=== PATIENT | male | born 1985 | race Caucasian/White ===

== ENCOUNTER 2017-03-23 20:00 | Emergency (ER) | payer OTHER ==
[2017-03-23 20:08] VITALS: BP 133/89; PULSE 100; TEMP 98.8; BMI 31.8
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
[2017-03-23] MEDS ORDERED: SODIUM CHLORIDE 1,000 ML IV ONE (21:02)
[2017-03-23 21:43] LABS: MEAN PLT VOLUME 8.8 fl (7.5-11.1)
[2017-03-23 21:52] LABS: BASOPHIL 1.1 % (0-2.0); EOSINOPHIL 2.8 % (0-4.5); MCH 29.8 pg (25.7-33.7); MCHC 34.7 g/dl (32.0-35.9); MEAN CELL VOLUME 86.1 fl (80-96); NEUTROPHILS 67.7 % (42.8-82.8); PLATELET COUNT 306 K/MM3 (134-434); WHITE BLOOD COUNT 11.2 K/mm3 (4.0-10.8)
[2017-03-23 22:07] LABS: ALBUMIN 4.5 g/dl (3.5-5.0); ALK PHOS 45 U/L (32-92); ANION GAP 8 (8-16); BILIRUBIN,TOTAL 0.8 mg/dl (0.2-1.0); CO2 29 mmol/L (22-28); CREATININE 0.9 mg/dl (0.6-1.3); GLUCOSE,RANDOM 110 mg/dl (74-106); SGOT/AST 39 U/L (10-42); SGPT/ALT 106 U/L (10-40); TOT PROT 7.1 g/dl (6.4-8.3)
[2017-03-23 22:27] LABS: MAGNESIUM 2.2 mg/dL (1.8-2.4); PHOSPHOROUS 3.9 mg/dl (2.5-4.6)
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
== END 2017-03-23 23:34 | disposition home or self-care (01) ==
LOC: FER 20:00
PROC: 3E0337Z Introduction of Electrolytic and Water Balance Substance into Peripheral Vein, Percutaneous Approach (ICD-10-PCS; principal; 2017-03-23)
DX: R56.9 Unspecified convulsions (principal); F17.210 Nicotine dependence, cigarettes, uncomplicated
CPT/HCPCS: 36415; 70450-TC; 80053; 80307; 83690; 83735; 84100; 85025; 93005; 99283-25

== ENCOUNTER 2022-01-17 01:54 | Emergency (ER) | payer BC ==
[2022-01-17 02:03] VITALS: BP 137/92; PULSE 88; RESP 18; BMI 29.8
[2022-01-17] MEDS ORDERED: ALPRAZolam 0.25 MG TABLET PO ONE (02:08)
[2022-01-17] MEDS ORDERED: ALPRAZolam 0.25 MG TABLET ONE (02:10)
== END 2022-01-17 02:30 | disposition home or self-care (01) ==
LOC: FER 01:54
DX: F41.0 Panic disorder [episodic paroxysmal anxiety] (principal)
CPT/HCPCS: 99283-25